=== PATIENT | female | born 1980 | race Caucasian/White ===

== ENCOUNTER 2021-06-06 13:34 | Emergency (ER) | payer OTHER ==
[~2021-06-06] VITALS: Ht 167.6 cm; Wt 56.4 kg
[2021-06-06] MEDS ORDERED: CYAN-51 PO (15:31)
[2021-06-06 16:02] VITALS: BP 103/69
== END 2021-06-06 16:04 | disposition home or self-care (01) ==
LOC: ER 13:39
DX: M79.662 Pain in left lower leg (principal); R20.2 Paresthesia of skin; E53.8 Deficiency of other specified B group vitamins; F17.200 Nicotine dependence, unspecified, uncomplicated; Z56.0 Unemployment, unspecified; Z59.0 Homelessness; Z79.899 Other long term (current) drug therapy
CPT/HCPCS: 93971; 99284